=== PATIENT | male | born 1955 | race African-American/Black ===

== ENCOUNTER 2019-12-20 14:18 | Emergency (ER) | payer BC, OTHER ==
[2019-12-20] MEDS ORDERED: DERMABOND SKIN ADHESIVE TOP ONE (15:07)
--- NOTE | 2019-12-20 15:08 | ER ---
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 Laceration to left forehead hb noted. Bleeding controlled. Coronavirus screen: At this time, the client does not indicate any symptoms associated with coronavirus-19. Ebola Screen: No symptoms or risks identified at this time. Complicating Factors: There are no complicating factors for this patient. Initial Sepsis Screen: Does the patient meet any 2 criteria? No. Patient's initial sepsis screen is negative. Does the patient have a suspected source of infection? No. Patient's initial sepsis screen is negative. Risk Assessment: Do you want to hurt yourself or someone else? Patient reports no desire to harm self or others. Onset of symptoms. 14:37 Method Of Arrival: Ambulatory hb 14:37 Acuity: ELIO 4 hb Triage Assessment: 14:38 General: Appears in no apparent distress. Behavior is calm, cooperative. Pain: Denies hb pain. EENT: No signs and/or symptoms were reported regarding the EENT system. Neuro: Level of Consciousness is awake, alert, obeys commands, Oriented to person, place, time, situation. Cardiovascular: Capillary refill < 3 seconds Patient's skin is warm and dry. Respiratory: Respiratory effort is even, unlabored, Respiratory pattern is regular, symmetrical. GI: No signs and/or symptoms were reported involving the gastrointestinal system. : No signs and/or symptoms were reported regarding the genitourinary system. Derm: Skin is pink, warm \T\ dry. Musculoskeletal: No signs and/or symptoms reported regarding the musculoskeletal system. Injury Description: Laceration sustained to forehead is 2.6 to 7.5 cm long, not bleeding, was sustained 30-60 minutes ago. Historical: - Allergies: 14:39 No Known Allergies; hb - Home Meds: 14:39 Metformin Oral [Active]; Lisinopril Oral [Active]; hb - PMHx: 14:39 Diabetes - NIDDM; Hypertension; hb - PSHx: 14:39 Knee - Left; Appendectomy; Cholecystectomy; hb - Immunization history:: Adult Immunizations up to date. - Social history:: Smoking status: Patient denies any tobacco usage or history of. Screenin:05 Abuse screen: Denies threats or abuse. Denies injuries from another. Nutritional hb screening: No deficits noted. Tuberculosis screening: No symptoms or risk factors identified. Fall Risk None identified. Vital Signs: 14:37 BP 141 / 84; Pulse 70; Resp 16; Temp 97.8; Pulse Ox 98% on R/A; Weight 111.13 kg; hb Height 5 ft. 7 in. (170.18 cm); Pain 0/10; 14:37 Body Mass Index 38.37 (111.13 kg, 170.18 cm) hb ED Course: 14:20 Patient arrived in ED. ag5 14:20 Lesa Gaitan MD is Private Physician. ag5 14:37 [facility]C [facility]. kb 14:37 Jamie Elliott MD is Attending Physician. kb 14:38 Triage completed. hb 14:39 Arm band placed on. hb 15:05 Patient has correct armband on for positive identification. Bed in low position. Call hb light in reach. 15:05 No provider procedures requiring assistance completed. Patient did not have IV access hb during this emergency room visit. 15:07 Kelly Pérez, RN is Primary Nurse. hb Administered Medications: No medications were administered Outcome: 15:08 Discharge ordered by MD. kb 15:15 Patient left the ED. hb Signatures: Marti Myrick FNP-C FNP-Ckb Baxter, Heather, RN RN Yunier Pate ag5
--- NOTE | 2019-12-20 15:08 | EDPHYS ---
Physician Documentation [facility] Name: Jordi Haywood Age: 64 yrs Sex: Male : 1955 Arrival Date: 12/20/2019 Time: 14:20 Bed 28 Private MD: Lesa Gaitan F ED Physician Jamie Elliott HPI: 12/19 15:25 This 64 yrs old Black Male presents to ER via Ambulatory with complaints of Laceration kb To Forehead. 15:25 The patient has a laceration related to: "walked into a chain saw" occurred at home, kb and there are no complicating factors. The injury was accidental. The laceration(s) is(are) located on the left side of forehead. Onset: The symptoms/episode began/occurred just prior to arrival. Associated signs and symptoms: The patient has no apparent associated signs or symptoms. The patient has not experienced similar symptoms in the past. The patient has not recently seen a physician. Historical: - Allergies: 14:39 No Known Allergies; hb - Home Meds: 14:39 Metformin Oral [Active]; Lisinopril Oral [Active]; hb - PMHx: 14:39 Diabetes - NIDDM; Hypertension; hb - PSHx: 14:39 Knee - Left; Appendectomy; Cholecystectomy; hb - Immunization history:: Adult Immunizations up to date. - Social history:: Smoking status: Patient denies any tobacco usage or history of. ROS: 15:24 Constitutional: Negative for fever, chills, and weight loss, Cardiovascular: Negative kb for chest pain, palpitations, and edema, Respiratory: Negative for shortness of breath, cough, wheezing, and pleuritic chest pain, Abdomen/GI: Negative for abdominal pain, nausea, vomiting, diarrhea, and constipation, Back: Negative for injury and pain, MS/Extremity: Negative for injury and deformity, Neuro: Negative for headache, weakness, numbness, tingling, and seizure. 15:24 Skin: Positive for laceration(s), of the left side of forehead. Exam: 15:24 Constitutional: This is a well developed, well nourished patient who is awake, alert, kb and in no acute distress. Chest/axilla: Normal chest wall appearance and motion. Nontender with no deformity. No lesions are appreciated. Cardiovascular: Regular rate and rhythm with a normal S1 and S2. No gallops, murmurs, or rubs. Normal PMI, no JVD. No pulse deficits. Respiratory: Lungs have equal breath sounds bilaterally, clear to auscultation and percussion. No rales, rhonchi or wheezes noted. No increased work of breathing, no retractions or nasal flaring. Abdomen/GI: Soft, non-tender, with normal bowel sounds. No distension or tympany. No guarding or rebound. No evidence of tenderness throughout. Back: No spinal tenderness. No costovertebral tenderness. Full range of motion. MS/ Extremity: Pulses equal, no cyanosis. Neurovascular intact. Full, normal range of motion. Neuro: Awake and alert, GCS 15, oriented to person, place, time, and situation. Cranial nerves II-XII grossly intact. Motor strength 5/5 in all extremities. Sensory grossly intact. Cerebellar exam normal. Normal gait. 15:24 Head/face: Noted is no obvious of injury or deformity except a laceration(s), that is superficial, 3 cm(s), of the left side of forehead. Vital Signs: 14:37 BP 141 / 84; Pulse 70; Resp 16; Temp 97.8; Pulse Ox 98% on R/A; Weight 111.13 kg; hb Height 5 ft. 7 in. (170.18 cm); Pain 0/10; 14:37 Body Mass Index 38.37 (111.13 kg, 170.18 cm) hb Laceration: 15:31 Wound Repair of 3cm ( 1.2in ) subcutaneous laceration to left side of forehead. Linear kb shaped.. Distal neuro/vascular/tendon intact. Wound prep: Extensive cleansing with hibiclenz by me, Wound irrigation with saline by me. Skin closed with thin layer Adhesive skin closure using Dermabond. Dressed with steri-strips. Patient tolerated well. MDM: 14:37 Patient medically screened. kb 15:16 Data reviewed: vital signs, nurses notes. Data interpreted: Pulse oximetry: on room air kb is 98 %. Interpretation: normal. Counseling: I had a detailed discussion with the patient and/or guardian regarding: the historical points, exam findings, and any diagnostic results supporting the discharge/admit diagnosis, the need for outpatient follow up, a family practitioner, to return to the emergency department if symptoms worsen or persist or if there are any questions or concerns that arise at home. 12/19 14:37 Order name: Dermabond; Complete Time: 15:05 kb 12/19 14:37 Order name: Wound Care; Complete Time: 15:15 kb Administered Medications: No medications were administered Disposition: 12/20 14:40 Co-signature as Attending Physician, Jamie Elliott MD I agree with the assessment and kdr plan of care. Disposition: 12/20/19 15:08 Discharged to Home. Impression: Laceration without foreign body of scalp - forehead. - Condition is Stable. - Discharge Instructions: Laceration Care, Adult, [id number], Head Injury, Adult, [id number]. - Medication Reconciliation Form, Thank You Letter, Antibiotic Education, Prescription Opioid Use form. - Follow up: Emergency Department; When: As needed; Reason: Worsening of condition. Follow up: Private Physician; When: 2 - 3 days; Reason: Recheck today's complaints, Continuance of care, Re-evaluation by your physician. Signatures: Marti Myrick, PROCESS COORDINATOR-C PROCESS COORDINATOR-Ckb Jamie Elliott MD MD kdr Kelly Pérez, RN RN hb Corrections: (The following items were deleted from the chart) 12/19 15:15 15:08 12/20/2019 15:08 Discharged to Home. Impression: Laceration without foreign body hb of scalp - forehead. Condition is Stable. Forms are Medication Reconciliation Form, Thank You Letter, Antibiotic Education, Prescription Opioid Use. Follow up: Emergency Department; When: As needed; Reason: Worsening of condition. Follow up: Private Physician; When: 2 - 3 days; Reason: Recheck today's complaints, Continuance of care, Re-evaluation by your physician. kb
[2019-12-20 15:33] VITALS: BP 141/84; TEMP 97.8; O2SAT 98
== END 2019-12-20 15:15 | disposition home or self-care (01) ==
LOC: ER 14:18
PROC: 0JQ10ZZ Repair Face Subcutaneous Tissue and Fascia, Open Approach (ICD-10-PCS; principal; 2019-12-20)
DX: S01.81XA Laceration without foreign body of other part of head, initial encounter (principal); W29.3XXA Contact with powered garden and outdoor hand tools and machinery, initial encounter; Y93.9 Activity, unspecified; Y92.009 Unspecified place in unspecified non-institutional (private) residence as the place of occurrence of the external cause; I10 Essential (primary) hypertension; E11.9 Type 2 diabetes mellitus without complications
CPT/HCPCS: 99281

== ENCOUNTER 2024-12-24 08:17 | Day surgery (SDC) | payer OTHER, SELFPAY ==
[2024-12-21 14:29] LABS: Absolute Lymphocytes (CBC) 1.9 K/uL (0.7-4.9); Hematocrit 41.4 % (39.6-49.0); Hemoglobin 13.4 g/dL (13.6-17.9); MCH 28.4 pg (27.0-35.0); MCHC 32.4 g/dL (32.0-36.0); MCV 87.8 fL (80-100); MPV 7.4 fL (7.6-11.3); Nucleated RBC Absolute Count 0.0 (0-0); Nucleated Red Blood Cells % 0.1 % (0-0); RBC Red Blood Cell Count 4.71 M/uL (4.33-5.43); White Blood Count 5.30 thou/uL (4.3-10.9)
[2024-12-21 14:45] LABS: Anion Gap 10.7 mEq/L (5.0-15.0); BUN Blood Urea Nitrogen 10.0 mg/dL (7-18); Glucose Level 113.0 mg/dL (74-106); Potassium 3.7 mEq/L (3.5-5.1)
--- NOTE | 2024-12-21 15:18 | RAD REPORT ---
EXAM: Chest Pa And Lat (2 Views) HISTORY: 69 years Male pre op for day surgery COMPARISON: 09/06/2011 FINDINGS: LUNGS/PLEURA: The lungs are clear. No pleural effusions or pneumothorax. No pulmonary edema. CARDIAC/MEDIASTINUM: The cardiac silhouette is within normal limits. UPPER ABDOMEN: No significant abnormality. BONES: No acute abnormality. LINES/TUBES/OTHER: N/A IMPRESSION: No evidence of acute cardiopulmonary disease.
[2024-12-24] MEDS ORDERED: SUCCINYLCHOLINE 200 MG/10 ML 200 MG/10 ML SYR IV ONE (08:25)
[2024-12-24] MEDS: NA CHLORIDE 0.9% 1,000 ML ONE (08:55)
[2024-12-24] MEDS ORDERED: FENTANYL CITR 100 MCG/2 ML ONE (09:25)
[2024-12-24] MEDS ORDERED: MIDAZOLAM HCL 2 MG/2 ML INJ ONE (09:25)
[2024-12-24] MEDS ORDERED: LIDOCAINE 1% MPF 5 ML VIAL ONE (09:26)
[2024-12-24] MEDS ORDERED: POVIDONE-IODINE 5% EYE DROPS ONE (09:40)
[2024-12-24] MEDS ORDERED: EPHEDRINE SULF 50 MG/ML VIAL ONE (09:57)
[2024-12-24] MEDS ORDERED: Phenylephrine HCl 10 MG/ML 1 ML VIAL ONE (10:00)
[2024-12-24] MEDS ORDERED: NS 0.9% VIAL 10 ML ONE (10:00)
[2024-12-24] MEDS ORDERED: ONDANSETRON 4 MG/2 ML VIAL ONE (10:00)
[2024-12-24] MEDS: CEFAZOLIN SODIUM 1 GM/VIAL ONE (10:05)
[2024-12-24] MEDS: BUPIVACAINE 0.5% PF 10 ML VIAL ONE (10:15)
[2024-12-24] MEDS ORDERED: Mastisol Adhesive Liq ONE (10:30)
--- NOTE | 2024-12-24 10:56 | P.BOP ---
Preoperative diagnosis: Forehead tender subQ mass 3x3cm Postoperative diagnosis: same Primary procedure: Excisional biopsy of Forehead tender subQ mass 3x3cm Estimated blood loss: <10cc Specimen: mass Findings: mass Anesthesia: General Complications: None Transferred to: Recovery Room Condition: Good
[2024-12-24 11:28] VITALS: TEMP 97.4
[2024-12-24 11:59] VITALS: BP 134/78; O2SAT 97
--- NOTE | 2024-12-24 21:43 | OP ---
Date of Procedure: 12/24/2024 Surgeon: Melchor Maravilla MD Preoperative Diagnosis: Forehead tender subcutaneous mass 3 x 3 cm. Postoperative Diagnosis: Forehead tender subcutaneous mass 3 x 3 cm. Procedure: Excisional biopsy of forehead tender subcutaneous mass 3 x 3 cm. Estimated Blood Loss: Less than 10 cc. Condition: Stable. Specimen: Mass. Findings: Subcutaneous mass. Anesthesia: General plus local. Complications: None. Indications: This is a case of a 69-year-old patient who comes to us with a mass in the forehead, ge tting pain and discomfort, getting bigger. He wants that excised. Benefits, alternatives, and risks of excision were fully explained, which include, but not limited to infection, bleeding, damage to a djacent structures, anesthesia complication, recurrent IN, and even . He also understands this may not relieve any symptoms. He might need more than one surgical intervention. He also understand s that will leave a scar in the forehead. He signed a consent. Description Of Procedure: The area of concern was marked by me and the patient in the holding room. The patient was brought to the operating room, placed in supine position. Anesthesia was done witho ut complication. Forehead was prepped and draped in sterile fashion. A time-out was called. After the area was prepped and draped in usual sterile fashion, we proceeded to make an incision in the ski n. Incision was carried down to deep subcutaneous tissue. We noticed the mass to be deep subcutaneo us tissue attached to the fascia and muscle, but does not penetrate the bone. The mass was completel y excised in 1 unit. Area was irrigated. Then, hemostasis was obtained, injected local anesthetic, and then after that, I checked for hemostasis again and then closed the area with a 3-0 Monocryl inte rrupted multiple times, deep layers first, and then the skin also in the same way. Sterile dressing was placed over the area with dressings. The patient tolerated the procedure well. The patient on h is way to recovery in stable condition. HARLAN/ANDREW Voice ID: [id number] Report ID: [id number]
== END 2024-12-24 11:49 | disposition home or self-care (01) ==
LOC: OR 08:17
PROVIDERS: ATTEND Surgery
PROC: 0JB10ZZ Excision of Face Subcutaneous Tissue and Fascia, Open Approach (ICD-10-PCS; principal; 2024-12-24 10:15)
DX: D17.0 Benign lipomatous neoplasm of skin and subcutaneous tissue of head, face and neck (principal)
CPT/HCPCS: 93005; 85025; 80048; 36415; 82947 ×2; 88304; 71046; 11443; A4216; J2704; J1100; J2003; J2371; J2250; J3010; J2405; J0330; J7030; J0690